=== PATIENT | male | born 1955 | race American Indian/Alaskan Native ===

== ENCOUNTER 2016-10-21 12:22 | Emergency (ER) | payer SELFPAY ==
[2016-10-21 13:46] VITALS: BP 154/105
[2016-10-21] MEDS ORDERED: BOOSTRIX IM ONE (14:44)
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
--- NOTE | 2016-10-21 14:49 | XRay Report ---
RIGHT SHOULDER RADIOGRAPHS INDICATION: Right shoulder injury. COMPARISON: None similar. FINDINGS: Frontal and Y views of the right shoulder, 3 projections demonstrate normal humeral head contour, well positioned against the glenoid. Intact AC joint with mild degenerative changes. Preserved scapular contour. Normal visualized soft tissues, right ribs and lung. Osteopenia possible. CONCLUSION: No acute right shoulder radiographic abnormality with other findings, as described. Thank you for the opportunity to participate in this patient's care.
[2016-10-21] MEDS ORDERED: NORCO 5/325 PO ONE (15:08)
== END 2016-10-21 16:17 | disposition home or self-care (01) ==
LOC: ED 12:22
DX: S40.211A Abrasion of right shoulder, initial encounter (principal); V87.8XXA Person injured in other specified noncollision transport accidents involving motor vehicle (traffic), initial encounter; Y93.9 Activity, unspecified; Y92.9 Unspecified place or not applicable; Y99.9 Unspecified external cause status
CPT/HCPCS: 90471; 90715